=== PATIENT | female | born 1980 | race Caucasian/White ===

== ENCOUNTER 2017-03-15 05:12 | Inpatient (IN) | payer OTHER ==
--- NOTE | ~2017-03-15 | HP ---
Unit #: [id number] #: [id number] Patient: LISSA BARRERA [id number] [facility] [address] [place] [address] [id number] MR#: [id number] NAME: LISSA BARRERA ROOM: P212 Age: 36 Sex: F Admission Date: 03/15/2017 : 1980 Attending Physician: Rodrigue Sadler M.D. Admitting Physician: Rodrigue Sadler M.D. Primary Care Physician: Primary Care Physician No HISTORY AND PHYSICAL HISTORY OF PRESENT ILLNESS Lissa is a 36-year-old female admitted on 03/15/[address] [place] [address] for detox from alcohol. PAST MEDICAL HISTORY None. PAST SURGICAL HISTORY section times three. SOCIAL HISTORY He smokes a pack of cigarettes daily. Drinks six to eight beers daily. No illegal drug use. She is currently and homeless living with friends. FAMILY HISTORY Noncontributory. REVIEW OF SYSTEMS CONSTITUTIONAL: No fever or chills. HEENT: Denies any sore throat, ear pain or runny nose. CARDIOVASCULAR: Denies chest pain, irregular heart rhythm or palpitations. CHEST: Denies shortness of breath or cough. No hemoptysis. GASTROINTESTINAL: Denies nausea, vomiting, diarrhea or chronic constipation. ENDOCRINE: Denies history of increased thirst or urination. No recent significant weight loss or gain. GENITOURINARY: Denies dysuria, frequency, or hematuria. SKIN: Denies any rashes. HEMATOLOGIC: Denies history of increased bleeding or bruising. MUSCULOSKELETAL: Denies any hot, swollen joints. No generalized muscle pain. NEUROLOGIC: Denies problems with vision or speech. No frequent, severe headaches. No numbness, tingling or weakness in any extremities. Denies loss of bladder or bowel control. CURRENT MEDICATIONS None. ALLERGIES None. Unit #: [id number] #: [id number] Patient: LISSA BARRERA PHYSICAL EXAMINATION GENERAL: Alert, oriented, in no acute distress. VITAL SIGNS: Blood pressure 141/85, heart rate 93, respirations 18, temperature 97.8. HEIGHT: 5 foot 4 inches. WEIGHT: 160 pounds. SKIN: Warm and dry without rash or lesion. HEENT: Normocephalic. TMs not viewed. Oral and nasal passages clear. Conjunctivae clear. PERRLA. EOMs intact. NECK: Supple without lymphadenopathy or thyromegaly. HEART: Regular rate and rhythm without murmur. LUNGS: Clear. ABDOMEN: Soft, nontender, without masses or hepatosplenomegaly. : Not done. EXTREMITIES: No evidence of cyanosis, clubbing or edema. Moves all without focal deficit. NEUROLOGICAL: Grossly within normal limits. Cranial Nerves: II: Visual pizarro are intact. III, IV AND : Extraocular movements are intact. Pupils are equal, round and reactive to light. V: Facial sensation is grossly normal. VII: Facial movements and expression are normal. VIII: Auditory acuity grossly intact. IX, X: Uvula is midline. Phonation is normal. XI: Patient shrugs shoulders and turns head normally. XII: Tongue protrudes in the midline. Sensory and Motor Function: Sensory and motor sensation is grossly normal. Motor: moves all extremities well. Coordination: Gait is normal. Deep Tendon Reflexes: Intact. IMPRESSION Psychiatric admission. RECOMMENDATIONS Psychiatric, per psychiatrist. MEDICAL: I see no contraindications to participating in facility's activities. MEDICAL PROGNOSIS Good. MEDICAL CONDITION Stable. Dictated by... Lovely Morales/anand TD: 03/16/2017 02:55 JOB #: [id number] Unit #: [id number] #: [id number] Patient: LISSA BARRERA HISTORY AND PHYSICAL Page 1 of 1 X BABAK BELTRAN APRN X HISTORY AND PHYSICAL
--- NOTE | ~2017-03-15 | PA ---
Unit #: [id number] #: [id number] Patient: RONNY BARRERA [id number] [facility] YAZ STOVER [address] [place] [address] [id number] I MR#: [id number] NAME: RONNY BARRERA ROOM: [facility] [place] Age: 36 Sex: F Admission Date: 03/15/2017 : 1980 Date of Assessment: 03/15/2017 Attending Physician: Rodrigue Sadler M.D. Admitting Physician: Rodrigue Sadler M.D. Primary Care Physician: Primary Care Physician No PSYCHIATRIC ASSESSMENT INFORMANTS Patient considered reliable. CHIEF COMPLAINT "I came here to detox." HISTORY OF PRESENT ILLNESS This is a 36-year-old female, who is and homeless. She reports homelessness since age 22. She is currently drinking 12 packs of beer plus daily. There is a significant family history of alcohol abuse with her father and two brothers. She reports a history of DTs with hallucinations, but no seizure activity. She is not taking any home medications. She denies any medical problems. The patient feels a bit tremulous today, but she is alert, oriented and able to consume fluid and eat adequately. She remained pleasant and appropriate during the assessment. PAST PSYCHIATRIC HISTORY The patient reports multiple hospitalizations for alcohol detox. This is her [facility] admission at [facility]. She reports a 20 year history of alcohol abuse with her longest sobriety of 7 months. She denies any other treatment for any other mental illness. FAMILY HISTORY The patient reports her father and 2 brothers to abuse alcohol. She is fairly estranged from her family at this time. SOCIAL HISTORY The patient is with 3 daughters. Her 3 daughters are living with family members. She has been homeless since age 22 and remains unemployed with no income. SUBSTANCE ABUSE HISTORY The patient denies any illicit drug use. She reports drinking 12 pack of beer daily and sometimes more. ALLERGIES No known medical allergies. HOME MEDICATIONS None. MENTAL STATUS EXAMINATION Unit #: [id number] #: [id number] Patient: RONNY BARRERA This patient is a 36-year-old female, who appears older than her stated age. She is a bit disheveled and unkempt. The patient is alert and oriented x3. Her speech is regular rate and rhythm and easily understood. The patient's intellectual capabilities appeared to be in the average range based on her fund of knowledge and abstractions. Insight and judgment are fair at this time. Her memory and concentration are intact. The patient is ambulatory. Thought processes are logical and there are no psychotic symptoms. ASSETS AND LIABILITIES The patient's assets include her voluntary admission to the hospital. Liabilities include homelessness and inability to maintain sobriety. ADMITTING DIAGNOSES AXIS I: Alcohol dependent. AXIS II: Deferred. AXIS III: Unremarkable. AXIS IV: AXIS V: PSYCHIATRIC TREATMENT PLAN This patient was admitted to [facility] for alcohol detox. She was placed on appropriate alcohol detox protocol. She will enroll in group therapy and unit activities. The patient should consider AA meetings and obtaining AA sponsor. She also may be with a secondary social studies teacher to discuss her homelessness and appropriate community resources. ESTIMATED LENGTH OF STAY 3 to 5 days. DISCHARGE PLAN The patient will follow up in the community for her substance abuse. Dictated by... Lisa Eldridge A.P.R.N. for Rodrigue Sadler M.D. WAYNE/modl TD: 03/16/2017 01:04 JOB #: [id number] PSYCHIATRIC ASSESSMENT Page 1 of 1 X Lisa Eldridge PSYCHIATRIC ASSESSMENT
--- NOTE | ~2017-03-15 | PN ---
Unit #: [id number] #: [id number] Patient: LISSA BARRERA [id number] [facility] [address] [place] [address] [id number] I MR#: [id number] NAME: LISSA BARRERA ROOM: P212 Age: 36 Sex: F Admission Date: 03/15/2017 : 1980 Attending Physician: Rodrigue Sadler M.D. Admitting Physician: Rodrigue Sadler M.D. Primary Care Physician: Primary Care Physician Rubi STOVER PROGRESS NOTES DATE 03/16/2017 DISCUSSION Lissa continues to have active alcohol detox symptoms today. Her mood is anxious with a congruent affect. She is alert and fully oriented. Her memory and concentration are fair. Her thought processes were goal-directed with no active psychosis. ASSESSMENT Alcohol dependence. PLAN Continue with detox protocol. Dictated by... Kevin Henderson/srinivasan TD: 03/17/2017 23:11 JOB #: [id number] [facility] PROGRESS NOTES Page 1 of 1 X Rodrigue Sadler MD PROGRESS NOTE
--- NOTE | ~2017-03-15 | DS ---
Unit #: [id number] #: [id number] Patient: LISSA BARRERA [id number] [facility] [address] [place] [address] [id number] I MR#: [id number] NAME: LISSA BARRERA ROOM: [facility] Age: 36 Sex: F Admission Date: 03/15/2017 : 1980 Discharge Date: 03/17/2017 Attending Physician: Rodrigue Sadler M.D. DISCHARGE SUMMARY REASON FOR ADMISSION Lissa is a 36-year-old woman who is homeless and , and has been drinking 12 beers daily. She has a history of DTs and hallucinations and requested detox. She had no suicidal ideation, intent, or plan. DIAGNOSTIC STUDIES LABORATORY RESULTS: Please see referring hospital records. HOSPITAL COURSE The patient was admitted and placed on the alcohol detox protocol. She had an uneventful period of inpatient detox with no hallucinations, delusions, delirium, or other adverse side effects. On the date of discharge, she once again contracted for safety in the outpatient setting. DISCHARGE DIAGNOSES AXIS I: Alcohol dependence with withdrawal, uncomplicated, F11.23. AXIS II: No diagnosis. AXIS III: Alcohol withdrawal, resolved. AXIS IV: AXIS V: DISCHARGE INSTRUCTIONS The patient will return to [place] and follow up with the [facility]. DISCHARGE MEDICATIONS None. CONDITION AT DISCHARGE Improved. PROGNOSIS Good. DIET AND ACTIVITY Ad colin. Dictated by... Rodrigue Sadler M.D. [facility]/emiyl Unit #: [id number] #: [id number] Patient: LISSA BARRERA TD: 03/18/2017 13:08 JOB #: [id number] DISCHARGE SUMMARY Page 1 of 1 X Rodrigue Sadler MD X DISCHARGE SUMMARY
== END 2017-03-17 11:10 | disposition home or self-care (01) | DRG 897 ==
LOC: P2S 10:32
PROC: HZ2ZZZZ Detoxification Services for Substance Abuse Treatment (ICD-10-PCS; principal; 2017-03-15)
DX: F10.20 Alcohol dependence, uncomplicated (principal); F17.210 Nicotine dependence, cigarettes, uncomplicated